=== PATIENT | female | born 1995 ===

== ENCOUNTER 2016-08-31 16:23 | Emergency (ER) | payer MEDICAID ==
[2016-08-31 16:23] VITALS: BMI 27.9
[2016-08-31 16:46] VITALS: BP 108/69; PULSE 80; RESP 17; TEMP 98.5; O2SAT 100
--- NOTE | 2016-08-31 16:58 | ED PDOC ---
Upper Extremity Pain/Injury Time Seen by Provider: 08/31/16 16:43 Chief Complaint (Nursing): Upper Extremity Problem/Injury Chief Complaint (Provider): Left wrist pain History Per: Patient History/Exam Limitations: no limitations Onset/Duration Of Symptoms: Hrs Current Symptoms Are (Timing): Still Present Severity: Mild Additional Complaint(s): Patient is a 20 year old female presenting to the ED complaining of left wrist pain since last night status post banging on the wall. Patient was upset and started banging on the wall injuring her left wrist. 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 Denies numbness or tingling. PMD: none Past Medical History Reviewed: Historical Data, Nursing Documentation, Vital Signs Vital Signs: Last Vital Signs Temp 98.5 F 08/31/16 16:40 Pulse 80 08/31/16 16:40 Resp 17 08/31/16 16:40 BP 108/69 08/31/16 16:40 Pulse Ox 100 08/31/16 16:40 - Medical History PMH: No Chronic Diseases Denies: Diabetes, Hepatitis, HIV, HTN, Seizures, Sexually Transmitted Disease - Family History Family History: States: No Known Family Hx - Home Medications Home Medications: Ambulatory Orders Medication Instructions Recorded No Known Home Med 08/31/16 - Allergies Allergies/Adverse Reactions: Allergies Allergy/AdvReac Type Severity Reaction Status Date / Time No Known Allergies Allergy Verified 08/31/16 17:01 Review of Systems ROS Statement: Except As Marked, All Systems Reviewed And Found Negative Constitutional: Negative for: Fever Musculoskeletal: Positive for: Other (left wrist pain) Neurological: Negative for: Numbness Physical Exam - Reviewed Nursing Documentation Reviewed: Yes Vital Signs Reviewed: Yes - Physical Exam Appears: Positive for: Well, Non-toxic, No Acute Distress Head Exam: Positive for: ATRAUMATIC, NORMAL INSPECTION, NORMOCEPHALIC Skin: Positive for: Warm. Negative for: Normal Color Eye Exam: Positive for: Normal appearance Respiratory: Negative for: Accessory Muscle Use, Respiratory Distress Pulses-Radial (L): 2+ Pulses-Radial (R): 2+ Extremity: Positive for: Normal ROM, Tenderness (Distal ulna ), Other ( ecchymosis to the medial aspect of left wrist with tenderness) Neurologic/Psych: Positive for: Alert, Oriented - ECG O2 Sat by Pulse Oximetry: 100 (RA) Pulse Ox Interpretation: Normal Medical Decision Making Medical Decision Making: Time: 16:45 Impression: 20 y/o female w/ left wrist pain Plan: XR left wrist x-ray without acute fracture or dislocation wrist splint given. Scribe Attestation: Documented by Jaya Galo acting as a scribe for Susie Shahkatypolly. Provider Attestation: All medical record entries made by the Scribe were at my direction and personally dictated by me. I have reviewed the chart and agree that the record accurately reflects my personal performance of the history, physical exam, medical decision making, and the department course for this patient. I have also personally directed, reviewed, and agree with the discharge instructions and disposition. Disposition - Clinical Impression Clinical Impression: Contusion, wrist - Patient ED Disposition Is Patient to be Admitted: No Counseled Patient/Family Regarding: Diagnosis, Need For Followup - Disposition Referrals: [facility] [Outside] Disposition: Routine/Home Disposition Time: 17:41 Condition: GOOD Instructions: Contusion in Adults (ED)
--- NOTE | 2016-09-01 07:59 | RAD ---
PROCEDURE: Right Wrist Radiographs. HISTORY: Posttraumatic pain, hitting wall last night when mad COMPARISON: None. FINDINGS: BONES: Normal. No fracture. JOINTS: Normal. No dislocation. SOFT TISSUES: Normal. OTHER FINDINGS: None. IMPRESSION: No acute findings related to/accounting for the clinical presentation.
== END 2016-08-31 17:54 | disposition home or self-care (01) ==
LOC: H.ER 16:23
DX: S60.212A Contusion of left wrist, initial encounter (principal); W22.8XXA Striking against or struck by other objects, initial encounter; Y92.89 Other specified places as the place of occurrence of the external cause

== ENCOUNTER 2016-09-20 12:44 | Emergency (ER) | payer MEDICAID ==
[2016-09-20 12:44] VITALS: BMI 27.9
[2016-09-20 12:51] VITALS: BP 122/68; PULSE 88; RESP 20; TEMP 97.8; O2SAT 98
[2016-09-20] MEDS ORDERED: Alum-Mag Hydrox-Simethicone Susp (30 mL) PO STA (13:09)
[2016-09-20] MEDS ORDERED: Sodium Chloride 0.9% 1,000 ML IV STA (13:10)
--- NOTE | 2016-09-20 13:15 | ED PDOC ---
HPI: General Adult Time Seen by Provider: 09/20/16 12:55 Chief Complaint (Nursing): Abdominal Pain Chief Complaint (Provider): Left upper quadrant History Per: Patient History/Exam Limitations: no limitations Onset/Duration Of Symptoms: Mins Have you had recent travel within the past 21 days to any of the following countries: [place], [place], [place] or [place]?: No Current Symptoms Are (Timing): Still Present Severity: Moderate Additional History Per: Patient Additional Complaint(s): The pt is josesito female with PMHx of depression, presents to the ED for evaluation of left upper quadrant pain radiating to her left flank since earlier today. Pt reports she drank a latte with one shot of espresso as well as a [employer] energy drink this morning after which she experienced her symptoms. Pt reports she had similar symptoms 2 years ago which resolved after she stopped drinking the energy drinks. Additionally, she reports mild dysuria for the past week. Denies any nausea, vomiting, hematuria. Pt currently offers no additional medical complaints. Past Medical History Reviewed: Historical Data, Nursing Documentation, Vital Signs Vital Signs: Last Vital Signs Temp 97.8 F 09/20/16 12:49 Pulse 88 09/20/16 12:49 Resp 20 09/20/16 12:49 BP 122/68 09/20/16 12:49 Pulse Ox 98 09/20/16 18:52 - Medical History PMH: Depression Denies: Diabetes, Hepatitis, HIV, HTN, Seizures, Sexually Transmitted Disease - Surgical History Surgical History: No Surg Hx - Family History Family History: States: No Known Family Hx - Social History Current smoker - smoking cessation education provided: No Alcohol: None Drugs: Denies - Home Medications Home Medications: Ambulatory Orders Medication Instructions Recorded No Known Home Med 08/31/16 - Allergies Allergies/Adverse Reactions: Allergies Allergy/AdvReac Type Severity Reaction Status Date / Time No Known Allergies Allergy Verified 08/31/16 17:01 Review of Systems ROS Statement: Except As Marked, All Systems Reviewed And Found Negative Gastrointestinal: Positive for: Abdominal Pain (LUQ radiating to left flank). Negative for: Nausea, Vomiting, Diarrhea Physical Exam - Reviewed Nursing Documentation Reviewed: Yes Vital Signs Reviewed: Yes - Physical Exam Appears: Positive for: Well, Non-toxic, Uncomfortable Head Exam: Positive for: ATRAUMATIC, NORMAL INSPECTION, NORMOCEPHALIC Skin: Positive for: Normal Color Eye Exam: Positive for: Normal appearance Cardiovascular/Chest: Positive for: Regular Rate, Rhythm Respiratory: Positive for: Normal Breath Sounds. Negative for: Respiratory Distress Gastrointestinal/Abdominal: Positive for: Soft, Tenderness (left upper quadrant) Back: Positive for: Normal Inspection. Negative for: L CVA Tenderness, R CVA Tenderness Neurologic/Psych: Positive for: Alert, Oriented - Laboratory Results Result Diagrams: 09/20/16 13:30 09/20/16 13:30 - ECG O2 Sat by Pulse Oximetry: 98 (RA) Pulse Ox Interpretation: Normal - Progress Re-evaluation Time: 17:00 Condition: Re-examined, Improved Medical Decision Making Medical Decision Making: Time: 1315 Impression: Gastritis; pancreatitis; biliary colic; intestinal spasm; renal colic Plan: -- Bloodwork -- IV Fluids -- Zofran -- CMP -- Lipase -- CBC -- CT A/P -- Reassess Time: 1530 CT AP IMPRESSION: Presumed corpus luteum cyst in the left ovary. Questionable small bowel enteritis. Mild thickening of the wall of the urinary bladder. Underlying cystitis can be considered. Urinalysis recommended. Scribe Attestation: Documented by Sendy Lei acting as a scribe for Margaret Torres MD. Provider Attestation: All medical record entries made by the Scribe were at my direction and personally dictated by me. I have reviewed the chart and agree that the record accurately reflects my personal performance of the history, physical exam, medical decision making, and the department course for this patient. I have also personally directed, reviewed, and agree with the discharge instructions and disposition. Disposition - Clinical Impression Clinical Impression: Abdominal pain, UTI (urinary tract infection) - Patient ED Disposition Is Patient to be Admitted: No Doctor Will See Patient In The: Office Counseled Patient/Family Regarding: Studies Performed, Diagnosis, Need For Followup - Disposition Referrals: [facility] [Outside] Disposition: Routine/Home Disposition Time: 17:00 Condition: GOOD Additional Instructions: Patient left without her paperwork and rx. Instructions: Abdominal Pain (ED), Urinary Tract Infection in Women (GEN)
[2016-09-20] MEDS ORDERED: Alum-Mag Hydrox-Simethicone Susp (30 mL) ONE (13:17)
[2016-09-20 13:47] LABS: BASO % 0.1 % (0.0-2.0); EOS # 0.1 K/uL (0.0-0.7); EOS % 0.4 % (0.0-4.0); HEMATOCRIT 42.4 % (34.0-47.0); LYMPH # 0.8 K/uL (1.0-4.3); LYMPH % 6.3 % (20.0-40.0); MEAN CELL VOLUME 90.2 fl (81.0-99.0); MEAN CORPUSCULAR HEMOGLOBIN 30.1 pg (27.0-31.0); MEAN CORPUSCULAR HGB CONC 33.4 g/dL (33.0-37.0); MEAN PLATELET VOLUME 10.2 fl (7.2-11.7); MONO # 0.3 K/uL (0.0-0.8); MONO % 2.4 % (0.0-10.0); NEUT # 11.7 K/uL (1.8-7.0); NEUT % 90.8 % (50.0-75.0); PLATELET COUNT 155 K/uL (130-400); WHITE BLOOD COUNT 12.9 K/uL (4.8-10.8)
[2016-09-20 14:10] LABS: RBC URINE 7 /hpf (0-3); URINE BACTERIA OCC (<OCC); URINE BILIRUBIN NEGATIVE (NEGATIVE); URINE BLOOD NEGATIVE (NEGATIVE); URINE COLOR YELLOW (YELLOW); URINE GLUCOSE (UA) NEG (Normal); URINE KETONE NEGATIVE (NEGATIVE); URINE LEUKOCYTE ESTERASE LARGE Leu/uL (Negative); URINE PROTEIN 30 mg/dL (NEGATIVE); URINE UROBILINOGEN 0.2-1.0 mg/dL (0.2-1.0); WBC CLUMPS FEW /hpf; WBC URINE 103 /hpf (0-5)
[2016-09-20 14:13] LABS: ALB/GLOB RATIO 1.4 (1.0-2.1); ALKALINE PHOSPHATASE 80 U/L (38-126); ALT/SGPT 28 U/L (9-52); AST/SGOT 22 U/L (14-36); BILIRUBIN,TOTAL 0.4 mg/dl (0.2-1.3); BLOOD UREA NITROGEN 10 mg/dl (7-17); CALCIUM 9.3 mg/dL (8.4-10.2); CARBON DIOXIDE 22 mmol/L (22-30); CHLORIDE 106 mmol/L (98-107); GFR AFRICAN-AMERICAN > 60; GLUCOSE,RANDOM 117 mg/dL (65-105); LIPASE 94 U/L (23-300); SODIUM 141 mmol/l (132-148); TOTAL PROTEIN 8.3 G/DL (6.3-8.2)
[2016-09-20] MEDS ORDERED: Iohexol 300 100 ML IJ ONE (14:34)
[2016-09-20] MEDS ORDERED: Sodium Chloride 0.9% 50 ML IV ONE (14:34)
[2016-09-20 15:23] LABS: BASOPHIL 1 % (0-2); EOSINOPHIL 1 % (0-7); NEUTROPHIL 89 % (42-75); TOTAL CELLS COUNTED 100
[2016-09-20 15:24] LABS: LARGE PLATELETS PRESENT
--- NOTE | 2016-09-20 15:32 | CT ---
PROCEDURE: CT Abdomen and Pelvis with intravenous contrast. HISTORY: LUQ pain, left flank pain COMPARISON: 12/11/2014 TECHNIQUE: Contrast dose: 96 mL Radiation dose: Total exam DLP = 558.83 mGy-cm. This CT exam was performed using one or more of the following dose reduction techniques: Automated exposure control, adjustment of the mA and/or kV according to patient size, and/or use of iterative reconstruction technique. FINDINGS: LOWER THORAX: Unremarkable. LIVER: Unremarkable. No gross lesion or ductal dilatation. GALLBLADDER AND BILE DUCTS: Unremarkable. PANCREAS: Unremarkable. No gross lesion or ductal dilatation. SPLEEN: Unremarkable. ADRENALS: Unremarkable. No mass. KIDNEYS AND URETERS: Unremarkable. No hydronephrosis. No solid mass. VASCULATURE: Unremarkable. No aortic aneurysm. BOWEL: Suboptimal evaluation of the bowel. Mild bowel wall thickening of the proximal small bowel suggestive of mild inflammatory changes. APPENDIX: Normal appendix. PERITONEUM: Small amount of fluid in the cul-de-sac. This is likely physiologic given patient's age. LYMPH NODES: No bulky lymphadenopathy. BLADDER: Mild thickening of the wall of the urinary bladder. This could be due to underlying infection. REPRODUCTIVE: Please note that evaluation of gynecologic organs is not optimal on CT imaging. Presumed corpus luteum cyst on the left ovary. BONES: No acute fracture. OTHER FINDINGS: Fat containing umbilical hernia. IMPRESSION: Presumed corpus luteum cyst in the left ovary. Questionable small bowel enteritis. Mild thickening of the wall of the urinary bladder. Underlying cystitis can be considered. Urinalysis recommended.
== END 2016-09-20 17:35 | disposition home or self-care (01) ==
LOC: H.ER 12:44
DX: N39.0 Urinary tract infection, site not specified (principal); F32.9 Major depressive disorder, single episode, unspecified; R30.0 Dysuria

== ENCOUNTER 2018-02-03 22:53 | Emergency (ER) | payer MEDICAID ==
[2018-02-03 22:53] VITALS: BMI 27.9
[2018-02-03 23:01] VITALS: RESP 16
--- NOTE | 2018-02-03 23:03 | ED PDOC ---
HPI: Abdomen Time Seen by Provider: 02/03/18 23:02 Chief Complaint (Nursing): Abdominal Pain Chief Complaint (Provider): abdominal pain History Per: Patient Additional Complaint(s): 22-year-old female presents with intermittent epigastric pain ongoing for 1 month. Patient describes the pain as burning and states it is worse after she eats certain foods. No associated fever or chills. Patient has mild nausea and vomiting intermittently depending on what she eats. She also has vaginal discharge and is concerned for possible chlamydia. She had chlamydia last year and states today her symptoms are similar. Patient currently engages in unprote cted intercourse with her boyfriend and is not sure if he is with anyone else. Patient is also noticed dysuria for 2 days. PMD: none Past Medical History Reviewed: Historical Data, Nursing Documentation, Vital Signs Vital Signs: Last Vital Signs Temp 98.1 F 02/03/18 22:57 Pulse 75 02/03/18 22:57 Resp 16 02/03/18 22:57 BP 117/74 02/03/18 22:57 Pulse Ox 100 02/03/18 22:57 - Medical History PMH: No Chronic Diseases, Depression - Surgical History Surgical History: No Surg Hx - Family History Family History: States: No Known Family Hx - Living Arrangements Living Arrangements: With Family - Social History Current smoker - smoking cessation education provided: No Alcohol: None Drugs: Denies - Home Medications Home Medications: Ambulatory Orders Medication Instructions Recorded Famotidine [Pepcid] 20 mg PO DAILY #30 tab 02/03/18 Nitrofurantoin Macrocrystals 100 mg PO BID #14 cap 02/03/18 [Macrobid] - Allergies Allergies/Adverse Reactions: Allergies Allergy/AdvReac Type Severity Reaction Status Date / Time No Known Allergies Allergy Verified 02/03/18 22:56 Review of Systems ROS Statement: Except As Marked, All Systems Reviewed And Found Negative Constitutional: Negative for: Fever Cardiovascular: Negative for: Chest Pain Respiratory: Negative for: Cough Gastrointestinal: Positive for: Nausea, Abdominal Pain. Negative for: Diarrhea, Constipation Genitourinary Female: Positive for: Dysuria, Vaginal Discharge Physical Exam - Reviewed Nursing Documentation Reviewed: Yes Vital Signs Reviewed: Yes - Physical Exam Appears: Positive for: Well, Non-toxic, No Acute Distress Skin: Positive for: Normal Color. Negative for: Rash Eye Exam: Positive for: Normal appearance Cardiovascular/Chest: Positive for: Regular Rate, Rhythm Respiratory: Positive for: Normal Breath Sounds. Negative for: Respiratory Distress Gastrointestinal/Abdominal: Positive for: Soft. Negative for: Tenderness, Distended, Guarding, Rebound Back: Negative for: L CVA Tenderness, R CVA Tenderness Extremity: Positive for: Normal ROM Neurologic/Psych: Positive for: Alert, Oriented - Laboratory Results Urine POC: Negative Urine dip results: Positive for: Leukocyte Esterase (trace). Negative for: Blood, Nitrate, Ketones, Glucose, Bilirubin, Protein - ECG O2 Sat by Pulse Oximetry: 100 Pulse Ox Interpretation: Normal Medical Decision Making Medical Decision Makin22 year old with abdominal pain. Abdominal exam is benign upon arrival Plan: Urine dip and test Urine culture GC/CHL culture Patient treated with zofran, Pepcid and Mylanta for gastritis symptoms. Patient also treated with Rocephin and Zithromax to cover for possible gonorrhea and chlamydia. Leukocytes noted in urine, prescription for Macrobid provided along with rx for pepcid. Patient was referred to medicine rn neonatal icu for follow up. Disposition - Clinical Impression Clinical Impression: GERD (gastroesophageal reflux disease), UTI (urinary tract infection), Possible exposure to STD - Patient ED Disposition Is Patient to be Admitted: No Counseled Patient/Family Regarding: Studies Performed, Diagnosis, Need For Followup, Rx Given - Disposition Referrals: Vlad Grace MD [Staff Provider] - Disposition: Routine/Home Disposition Time: 23:45 Condition: STABLE Additional Instructions: Take prescription meds as directed. Follow dietary instructions. Refrain from intercourse until symptoms resolve completely. Follow-up with referral doctor. Prescriptions: Famotidine [Pepcid] 20 mg PO DAILY #30 tab Nitrofurantoin Macrocrystals [Macrobid] 100 mg PO BID #14 cap Instructions: Urinary Tract Infection, Adult (DC), Acid Reflux (Gastroesophageal Reflux Disease), Adult (DC), Sexually-Transmitted Diseases, Ulcer and Gastritis Diet Forms: [place] ([place]), [facility] ED School/Work Excuse
[2018-02-03] MEDS ORDERED: Sterile Water 10 ML IV ONE (23:39)
[2018-02-03] MEDS: cefTRIAXone (Rocephin) 250 mg Inj IM STA (23:44)
[2018-02-03] MEDS: Alum-Mag Hydrox-Simethicone Susp (30 mL) PO STA (23:49)
[2018-02-04 00:34] VITALS: BP 122/70; PULSE 78; TEMP 98.5
[2018-02-04 00:43] LABS: SQUAMOUS EPITHIAL 4 /hpf (0-5); URINE BILIRUBIN NEGATIVE (NEGATIVE); URINE BLOOD NEGATIVE (NEGATIVE); URINE CLARITY TURBID (Clear); URINE COLOR YELLOW (YELLOW); URINE GLUCOSE (UA) NEG (Normal); URINE LEUKOCYTE ESTERASE NEG Leu/uL (Negative); URINE PROTEIN NEGATIVE (NEGATIVE)
[2018-02-04 00:44] VITALS: O2SAT 100
== END 2018-02-04 00:20 | disposition home or self-care (01) ==
LOC: H.ER 22:53
DX: K21.9 Gastro-esophageal reflux disease without esophagitis (principal); N39.0 Urinary tract infection, site not specified; Z20.2 Contact with and (suspected) exposure to infections with a predominantly sexual mode of transmission
CPT/HCPCS: 81003; 81025; 87086; 87491; 87591; 96372; 99283; J0696